=== PATIENT | male | born 1985 | race Caucasian/White ===

== ENCOUNTER 2019-02-15 08:12 | Outpatient (REF) | payer BC, SELFPAY ==
[2019-02-16 08:42] LABS: HCT 50.5 % (40.0-50.0); HGB 16.8 g/dL (13.5-17.5); Mean Corp. HGB Concentration 33.3 g/dL (32.0-36.0); Mean Corpuscular Hemoglobin 28.3 pg (27.0-33.0); Mean Corpuscular Volume 85.2 fL (80-95); Mean Platelet Volume 10.7 fL (8.0-11.0); Platelet Count 190 x1000/uL (130-400); RBC 5.93 m/cumm (4.50-6.00); RBC Distribution Width 13.8 % (11.8-14.1); White Blood Cell Count 8.42 k/cumm (4.4-10.8)
[2019-02-16 08:43] LABS: Abs Immature Grans 0.03 k/cumm (0.0-0.09); Absolute Basophil Count 0.03 k/cumm (0.0-0.2); Absolute Eosinophil Count 0.03 k/cumm (0.0-0.7); Absolute Lymphocyte Count 2.08 k/cumm (1.2-3.4); Absolute Monocyte Count 1.33 k/cumm (0.11-0.7); Absolute Neutrophil Count 4.92 k/cumm (1.2-6.7); Basophils % 0.4; Eosinophils % 0.4; Immature Grans % 0.4; Lymphocytes % 24.7; Monocytes % 15.8; Neutrophils % 58.3
[2019-02-17 10:57] LABS: Lyme Ab w Rflx to Lyme Confirm Negative
[2019-02-18 17:20] LABS: Anaplasma phagocytophilum Negative (Negative); B. miyamotoi PCR Negative (Negative); Babesia divergens/MO-1 Negative (Negative); Babesia duncani Negative (Negative); Babesia microti Negative (Negative); Ehrlichia chaffeensis Negative (Negative); Ehrlichia ewingii/canis Negative (Negative); Ehrlichia muris eauclairensis Negative (Negative)
== END 2019-02-15 08:32 ==
LOC: NCHCN 08:12
PROVIDERS: PCP Family Medicine; Visit Provider Nurse Practitioner Family
DX: R50.9 Fever, unspecified (principal); M25.50 Pain in unspecified joint; J02.9 Acute pharyngitis, unspecified
CPT/HCPCS: 87798; 85025; 86618

== ENCOUNTER 2024-06-10 15:30 | Outpatient (REF) | payer BC, SELFPAY ==
[2024-06-10 23:28] LABS: Campylobacter PCR Negative (Negative); Salmonella PCR Negative (Negative); Shiga Toxin PCR Negative (Negative); Shigella/Enteroinvasive Ecoli Negative (Negative)
== END 2024-06-10 15:31 | disposition home or self-care (01) ==
LOC: LBN 15:30
PROVIDERS: PCP Family Medicine; Visit Provider Nurse Practitioner Family
DX: R19.7 Diarrhea, unspecified (principal)
CPT/HCPCS: 87505; 87177